=== PATIENT | male | born 1965 | race Caucasian/White ===

== ENCOUNTER 2016-06-23 09:09 | Day surgery (SDC) | payer MEDICARE, OTHER ==
[~2016-06-23 09:09] MED LIST: LACTATED RINGERS 1,000 ML IV.SOLN IV ONE; LIDOCAINE HCL/PF 2% 100 MG/5 ML VIAL IJ ONE; PROPOFOL 200 MG/20 ML VIAL IV ONE; SALINE FLUSH 10 ML DISP.SYRIN IVF ONE
[2016-06-23 13:18] VITALS: BP 110/74
--- NOTE | 2016-06-23 18:49 | Operative Note ---
SURGEON: Asif Louis MD ANESTHESIA: MAC anesthesia. ESTIMATED BLOOD LOSS: None. FINDINGS: A 1 cm sessile polyp in the cecum. PREOPERATIVE DIAGNOSES: History of colon polyps. POSTOPERATIVE DIAGNOSIS: Cecal polyp. PROCEDURE PERFORMED: Colonoscopy with snare polypectomy. DESCRIPTION OF PROCEDURE: The patient was brought to the endoscopy suite and placed in the left lateral decubitus position. A rectal exam was performed which was normal. The colonoscope was inserted and passed easily to the cecum. The appendiceal orifice and ileocecal valve were identified. The prep was adequate. There was a residual 1 cm sessile polyp in the cecum which was completely removed with a snare. The base was clean with no bleeding. The colonoscope was then slowly retracted being careful to inspect all nielsen. No other lesions were seen. The colonoscope was removed. The patient tolerated the procedure well. RECOMMENDATIONS: I recommend a repeat colonoscopy in 3 years pending pathology. ELENITA
== END 2016-06-23 13:30 | disposition home or self-care (01) ==
LOC: OPSURG 09:09
PROVIDERS: ATTEND Colon & Rectal Surgery
DX: D12.0 Benign neoplasm of cecum (principal)
CPT/HCPCS: 45385; 88305; J2001; J2704; J7120; S1016

== ENCOUNTER 2016-07-19 09:44 | Outpatient (CLI) | payer MEDICARE, MEDICAID | END 2016-07-19 09:45 | LOC: LAB 09:44 | PROVIDERS: ATTEND Family Medicine | DX: E89.0 Postprocedural hypothyroidism (principal) | CPT/HCPCS: 36415; 84443 ==

== ENCOUNTER 2017-01-20 09:23 | Outpatient (CLI) | payer OTHER ==
--- NOTE | 2017-01-20 14:44 | Diagnostic Imaging Report ---
JOELLEN ESPINOZA [facility] [address] [facility] [address] [address] Report Submission Date: Jan 20, 2017 11:40:28 AM CDT Patient Study Name: RAMIRO CAMARILLO Date: Jan 20, 2017 9:47:25 AM CDT Modality Type: CR Gender: M Description: CHEST : 61 Institution: [facility] Physician: JOELLEN ESPINOZA Chest -two views CLINICAL HISTORY: Productive cough. Occasional chest pain. FINDINGS: Examination of the chest in PA and lateral views demonstrates the lungs to be clear. Cardiac silhouette is prominent. The bony thorax is intact. IMPRESSION: Left ventricular prominence. No active disease. Electronically signed on Jan 20, 2017 11:40:28 AM CDT by: Juan Pablo KWONG
== END 2017-01-20 09:33 ==
LOC: RAD 09:23
PROVIDERS: ATTEND Family Medicine
DX: E89.0 Postprocedural hypothyroidism (principal); F39 Unspecified mood [affective] disorder; Z51.81 Encounter for therapeutic drug level monitoring; Z79.899 Other long term (current) drug therapy; F17.200 Nicotine dependence, unspecified, uncomplicated; R05 Cough
CPT/HCPCS: 36415; 71020; 80061; 80178; 84443

== ENCOUNTER 2017-02-23 07:32 | Day surgery (SDC) | payer OTHER ==
[2017-02-23] MEDS ORDERED: PROPOFOL 500 MG/50 ML VIAL IV ONE (08:00)
[2017-02-23] MEDS ORDERED: LACTATED RINGERS 1,000 ML IV.SOLN IV ONE (08:00)
[2017-02-23] MEDS ORDERED: SALINE FLUSH 10 ML DISP.SYRIN IVF ONE (08:00)
--- NOTE | 2017-02-23 13:36 | Operative Note ---
SURGEON: Asif Louis MD ANESTHESIA: MAC anesthesia. PREOPERATIVE DIAGNOSIS: Reflux. POSTOPERATIVE DIAGNOSIS: 1. Reflux. 2. Normal esophagogastroduodenoscopy (EGD). PROCEDURE PERFORMED: Esophagogastroduodenoscopy (EGD). ESTIMATED BLOOD LOSS: None. COMPLICATIONS: None. FINDINGS: Normal exam. INDICATIONS FOR PROCEDURE: This is a 52-year-old man with reflux that has not responded to medical management. DESCRIPTION OF PROCEDURE: Patient was brought to the endoscopy suite and placed in the left lateral decubitus position. Anesthesia was administered by the boot and saddle repair person. The endoscope was inserted and passed easily to the second portion of the duodenum. There was no evidence of any mass or lesions. The duodenum was normal. There was very mild distal gastritis in the antrum. There were no masses. He had a very small hiatal hernia. The GE junction was normal. It was at 38 cm from the incisors. The esophagus appeared normal. There was no evidence of esophagitis. The endoscope was removed. The patient tolerated the procedure well. DISPOSITION: I recommended he continue his current medications. cc: Dr. Ziggy KWONG
== END 2017-02-23 07:33 ==
LOC: OPSURG 07:32
PROVIDERS: ATTEND Colon & Rectal Surgery
DX: K21.0 Gastro-esophageal reflux disease with esophagitis (principal)
CPT/HCPCS: J2704; J7120; 43235; S1016

== ENCOUNTER 2017-03-10 10:28 | Outpatient (CLI) | payer OTHER | END 2017-03-10 10:30 | LOC: LAB 10:28 | PROVIDERS: ATTEND Family Medicine | DX: E89.0 Postprocedural hypothyroidism (principal) | CPT/HCPCS: 36415; 84443 ==

== ENCOUNTER 2017-04-07 16:28 | Outpatient (CLI) | payer OTHER | END 2017-04-07 16:38 | LOC: LAB 16:28 | PROVIDERS: ATTEND Family Medicine | DX: E89.0 Postprocedural hypothyroidism (principal) | CPT/HCPCS: 36415; 84443 ==

== ENCOUNTER 2017-05-17 15:19 | Outpatient (CLI) | payer OTHER ==
--- NOTE | 2017-05-18 13:23 | OP Clinic Progress Note ---
REASON FOR VISIT: This 52-year-old man has had a hearing loss in the right ear and intermittently feels that there is a foreign body in it and it aches periodically and has reduced hearing. He does in fact have an extremely rock hard glued in chunk of infected cerumen. Using the microscope, I micro-debrided this in the office. Although it ached somewhat, as it was so severely wedged in, with placement of antibiotic ointment afterwards, all the discomfort had resolved. The left ear was clear and clean in the canal. Both eardrums are intact. Both eardrums are somewhat retracted in the umbo of the malleus. The patient does get imbalanced periodically. I have considered doing a small myringotomy in both ears but not today. I would not tend to do this concomitantly with the rock hard debris that was wedged in his right ear. He has worked around a lot of cement and it almost looks as if some was still leftover but that would be unlikely. Overall, he is quite improved. Another issue is the patient is just beginning to have sleep apnea and is just beginning the use of a CPAP but he has not quite started yet. The patient has a severely obstructed, nearly 100%, right nostril and there is a moderate amount of obstruction in the left nostril. One night he tried the CPAP in the hospital and he did fairly well with a full-face mask. If he continues to do well, I would simply leave him alone with the CPAP. If he has some problems with either pressure or usage, he ought to be considered for nasal surgery to try to open up both passages, particularly the right side that is essentially 100% obstructed. PLAN: For the reasons of his imbalance where he feels as if he just might start to campos or fall to one side and the issues regarding marked nasal obstruction with sleep apnea, I will simply re-evaluate him in about 4 months. cc: Dr. Ziggy KWONG
== END 2017-05-17 15:20 ==
LOC: ENT 15:19
PROVIDERS: ATTEND Otolaryngology
DX: J34.89 Other specified disorders of nose and nasal sinuses (principal); G47.30 Sleep apnea, unspecified; H91.91 Unspecified hearing loss, right ear; H61.21 Impacted cerumen, right ear
CPT/HCPCS: 69210; G0463

== ENCOUNTER 2017-06-03 10:13 | Emergency (ER) | payer OTHER ==
--- NOTE | 2017-06-03 10:53 | ED Physician Documentation ---
General Adult - HISTORIAN Historian: patient - HPI Stated Complaint: Wound Check Chief Complaint: General Adult Onset: other (had circumcision done yesterday) Timing: still present - ROS CONST: no problems. denies: fever, chills - PAST HX Past History: A-Fib (converted, bradycardia) Other History: none Allergies/Adverse Reactions: Allergies Allergy/AdvReac Type Severity Reaction Status Date / Time No Known Allergies Allergy Verified 06/03/17 10:38 - SOCIAL HX Smoking History: less than 1 pack/day (1/3 ppd) Alcohol Use: none Drug Use: none - FAMILY HX Family History: No - VITAL SIGNS Vital Signs: Vital Signs Temp Pulse Resp BP Pulse Ox 98.1 F 52 L 18 149/88 98 06/03/17 10:15 06/03/17 10:15 06/03/17 10:15 06/03/17 10:15 06/03/17 10:15 - REVIEWED ASSESSMENTS Nursing Assessment Reviewed: Yes Vitals Reviewed: Yes General Adult Physical Exam - PHYSICAL EXAM GENERAL APPEARANCE: mild distress NECK: normal inspection RESPIRATORY: no resp distress, chest non-tender, breath sounds normal. No: wheezes, rales, rhonchi CVS: reg rate & rhythm, heart sounds normal, equal pulses, no murmur, no gallop ABDOMEN: soft, no organomegaly, normal bowel sounds, no abdominal bruit, no distension SKIN: other (patient does have serial singleness slightly bloodied fluid draining from the circumcision incision site on the in fear aspect of the penis. Surgical incision looks clean and dry at this time. Do some mild ecchymosis and swelling to the shaft of the penis.) NEURO: oriented X3, CN's nml as tested, sensation nml, mood/affect nml, depressed mood/affect Discharge Clincal Impression: Encounter for post surgical wound check Referrals: Ziggy Howard MD [Primary Care Provider] - 2 Days Additional Instructions: Continue to monitor. Continue with JOSUE and nonadherent wound dressing as discussed. Watch for any infection. Return to the ED if needed. Condition: Stable Disposition: 01 HOME, SELF-CARE Decision to Admit: NO Date of Decison to Admit: 06/03/17 Decision Time: 11:02
[2017-06-03 11:11] VITALS: BP 138/78
== END 2017-06-03 11:10 | disposition home or self-care (01) ==
LOC: ED 10:13
DX: Z48.01 Encounter for change or removal of surgical wound dressing (principal)
CPT/HCPCS: 99283

== ENCOUNTER 2017-09-13 13:15 | Outpatient (CLI) | payer OTHER ==
--- NOTE | 2017-09-15 10:50 | OP Clinic Progress Note ---
REASON FOR VISIT: This 52-year-old man was seen with right ear itchiness and discomfort and reduced hearing. He has a large chunk of otitis externa that is hard and crusted in the ear canal. Under the microscope, I debrided this wide area of hard crusted, scabby debris from the ear. Clinically, he has fairly marked improved hearing and less general discomfort. The eardrum does not have any significant pathology. He has begun using a BiPAP. He uses it but he estimates that he might use it 4- 1/2 to 5 hours a night at best. Again, he has a severe nasal deformity with 100% nasal obstruction on the right side. He also has moderate oropharyngeal restriction with hypertrophic tonsillar tissues with exudates. I did discuss the importance of being able to use the BiPAP longer. At least he is using it, so he has at least a moderate amount of success using the BiPAP. Although nasal surgery and oropharyngeal surgery would probably significantly improve him. He does not follow the train of thought in regard to this discussion. PLAN: I will see him back in April and reclean his ears and probably re-visit issues regarding the quality of BiPAP usage. It is great that he got on it and it is at least a very healthy step in the right direction. cc: Dr. Ziggy KWONG
== END 2017-09-13 13:16 ==
LOC: ENT 13:15
PROVIDERS: ATTEND Otolaryngology
DX: H60.91 Unspecified otitis externa, right ear (principal)
CPT/HCPCS: 69210; G0463

== ENCOUNTER 2017-11-21 10:31 | Outpatient (CLI) | payer OTHER ==
[2017-11-21 10:50] LABS: BASOPHILS % 0.5 (0.0-1.5); EOSINOPHILS % 4.7 % (0.0-6.8); MEAN CORPUSCULAR HEMOGLOBIN 29.3 pg (28.0-34.0); MEAN CORPUSCULAR VOLUME 91.8 fl (80.0-100.0); MONOCYTES % 4.8 % (0.0-11.0); NEUTROPHILS # 6.3 # k/uL (1.4-7.7)
[2017-11-21 11:09] LABS: eGFR (African) > 60; eGFR (Non-African) > 60
== END 2017-11-21 10:32 ==
LOC: LAB 10:31
PROVIDERS: ATTEND Family Medicine
DX: I10 Essential (primary) hypertension (principal); Z51.81 Encounter for therapeutic drug level monitoring; Z79.899 Other long term (current) drug therapy; E89.0 Postprocedural hypothyroidism
CPT/HCPCS: 36415; 80053; 80178; 84443; 85025

== ENCOUNTER 2018-02-21 10:27 | Outpatient (CLI) | payer OTHER | END 2018-02-21 10:30 | LOC: LAB 10:27 | PROVIDERS: ATTEND Family Medicine | DX: E89.0 Postprocedural hypothyroidism (principal) | CPT/HCPCS: 36415; 84443 ==

== ENCOUNTER 2018-05-09 13:41 | Outpatient (CLI) | payer OTHER ==
--- NOTE | 2018-05-10 14:49 | OP Clinic Progress Note ---
REASON FOR VISIT: This 53-year-old man has had facial scabs and crusts and severe inflammatory reactions diffusely around his face. He is on a BiPAP with a fairly significant amount of pressure by history. He has a severe right nasal septal deviation with scabbing and crusting. There are deep groves and sulci on the left side of his nose secondary to the septal deviation. The patient feels, and as far as my observation, his facial skin generally has visibly improved. He had 2 ulcers below the lower lip. These are also smaller. They are hard crusted on top today. I peeled off a hard crusty area so that the Clindamycin can soak down in there better. PLAN: I have asked him to keep using the hygiene that he has had. He is currently not using the BiPAP and feels that he is not snoring heavily and to some degree, he may not have clinical sleep apnea currently. At least for the time being, he is heading in the direction of visible improvement. I will see him back in about 3 weeks. Continue on the same regimen. He is using Clindamycin and he is using a special soap on his face to help keep it clean, and he is not currently using the BiPAP and symptomatically, he is not having marked apnea but it is difficult to confirm this history. cc: Dr. Ziggy KWONG
== END 2018-05-09 13:42 ==
LOC: ENT 13:41
PROVIDERS: ATTEND Otolaryngology
DX: L98.9 Disorder of the skin and subcutaneous tissue, unspecified (principal); J34.2 Deviated nasal septum; L98.498 Non-pressure chronic ulcer of skin of other sites with other specified severity
CPT/HCPCS: 99212

== ENCOUNTER 2018-05-23 10:13 | Outpatient (CLI) | payer OTHER ==
[2018-05-23 10:51] LABS: MEAN CORPUSCULAR HEMOGLOBIN 30.2 pg (28.0-34.0); MONOCYTES % 5.8 % (0.0-11.0)
[2018-05-23 10:52] LABS: BASOPHILS % 0.5 (0.0-1.5); NEUTROPHILS # 6.6 # k/uL (1.4-7.7)
[2018-05-23 17:26] LABS: eGFR (Non-African) > 60
== END 2018-05-23 10:14 ==
LOC: LAB 10:13
PROVIDERS: ATTEND Family Medicine
DX: I10 Essential (primary) hypertension (principal); E89.0 Postprocedural hypothyroidism; Z79.899 Other long term (current) drug therapy
CPT/HCPCS: 36415; 80053; 80178; 84443; 85025

== ENCOUNTER 2018-06-13 14:52 | Outpatient (CLI) | payer OTHER ==
--- NOTE | 2018-06-15 09:48 | OP Clinic Progress Note ---
REASON FOR VISIT: Kosta is seen in follow up of his facial cellulitis and a sore in the dome of his left nostril, difficulties using his BiPAP with a mask, and right ear otalgia. He has been on Clindamycin facial washes and he has also shaved his mustache. Under the regimen as noted before, particularly using the clindamycin face wash and lotion, he has significantly improved. He feels that his facial ulcers and general sores have improved at least 33%. He states regarding his right ear otalgia, he says, "It has all straightened up and it is all gone now." His facial skin, at least today, looks, I would agree with him, 30% to 40% improved. There is much less swelling. I really do not see any erythema today. What is described as a blister in the dome of his nostril on that left side, again, is perhaps 70% improved. Although he could benefit I think with nasal surgery to try to improve his nasal airway, he might be able to use the BiPAP better. Nevertheless, trying to get rid of his clinical infection with facial cellulitis is critically important beforehand. Patient has some relatives who have had nasal surgery and so he is aware of risks, problems, and some of the complications and some discomfort and he is mulling over his options. PLAN: As the Clindamycin seems to be fairly significantly improving him, I have given him additionally 2 weeks of Clindamycin 300 mg twice a day. He will continue using the Clindamycin lotion. I would tend to not operate on his nose until we get hopefully even more cleaning up of his facial and nasal cellulitis. cc: Dr. Ziggy KWONG
== END 2018-06-13 14:53 ==
LOC: ENT 14:52
PROVIDERS: ATTEND Otolaryngology
DX: L03.211 Cellulitis of face (principal); J34.0 Abscess, furuncle and carbuncle of nose
CPT/HCPCS: G0463

== ENCOUNTER 2018-08-20 10:45 | Outpatient (CLI) | payer OTHER ==
--- NOTE | 2018-08-20 12:59 | Diagnostic Imaging Report ---
JOELLEN ESPINOZA [facility] [address] [facility] [address] [address] Report Submission Date: Aug 20, 2018 11:34:51 AM CDT Patient Study Name: RAMIRO CAMARILLO Date: Aug 20, 2018 11:00:36 AM CDT Modality Type: DX Gender: M Description: CHEST 2VIEW : 61 Institution: [facility] Physician: JOELLEN ESPINOZA EXAMINATION: CHEST 2VIEW HISTORY: smoker (Hx) COMPARISON: None FINDINGS: There is mild prominence of the interstitium diffusely. There is a calcified granuloma in the left lower lobe. There is no focal consolidation, pleural effusion, or pneumothorax. The cardiomediastinal silhouette is normal. The visible bony thorax is intact. IMPRESSION: Mild prominence of the interstitium diffusely, which could represent mild pulmonary edema and/or interstitial pneumonia in the appropriate clinical setting. No evidence of large suspicious pulmonary nodule. Electronically signed on Aug 20, 2018 11:34:51 AM CDT by: Irvin KWONG
== END 2018-08-20 10:47 ==
LOC: LAB 10:45
PROVIDERS: ATTEND Family Medicine
DX: R91.8 Other nonspecific abnormal finding of lung field (principal); R04.2 Hemoptysis; F17.200 Nicotine dependence, unspecified, uncomplicated; E03.9 Hypothyroidism, unspecified
CPT/HCPCS: 36415; 71046; 84443

== ENCOUNTER 2018-08-29 10:08 | Outpatient (CLI) | payer OTHER | END 2018-08-29 10:10 | LOC: LAB 10:08 | PROVIDERS: ATTEND Family Medicine | DX: E89.0 Postprocedural hypothyroidism (principal) | CPT/HCPCS: 36415; 84439; 84481 ==

== ENCOUNTER 2018-09-06 09:08 | Outpatient (CLI) | payer OTHER ==
[2018-09-06 09:44] LABS: eGFR (Non-African) > 60
--- NOTE | 2018-09-07 06:16 | Diagnostic Imaging Report ---
JOELLEN ESPINOZA [facility] [address] [facility] [address] [place], [place]. [address] Report Submission Date: Sep 06, 2018 10:24:03 AM CDT Patient Study Name: RAMIRO CAMARILLO Date: Sep 06, 2018 9:53:08 AM CDT Modality Type: CT\SR Gender: M Description: CT CHEST W/ CONTRAST : 61 Institution: [facility] Physician: JOELLEN ESPINOZA EXAMINATION: CT CHEST W/ CONTRAST HISTORY: HEMOPTYSIS, PT STATES CHEST PAIN AND COUGHING UP BLOOD FOR SEVERAL WEEKS, SMOKER- 1 PACK EVERY 2-3 DAYS TECHNIQUE: CT of the chest was performed with contrast according to standard protocol. COMPARISON: None FINDINGS: The aorta and main pulmonary artery are normal in caliber. There is mild emphysema in the lungs. There are scattered calcified pulmonary granulomas. In addition, there are a few indeterminate pulmonary nodules as followed: 6 mm juxtapleural right upper lobe (series 3 image 22), 7 mm juxtapleural right upper lobe (image 23), 5 mm right middle lobe (image 35), and 4 mm lingula (image 49). No pleural effusion is identified. There is no evidence of pneumothorax. The trachea is patent and midline. A small amount of debris is seen in the trachea. The heart size is normal. No lymphadenopathy is seen. The thyroid gland not well demonstrated and may be atrophic. Other than a calcified granuloma in the spleen, the visible portions of the upper abdominal organs are normal. Bone windows demonstrate no suspicious lytic or blastic lesions. The visible osseous structures are intact. IMPRESSION: 1. No evidence of endobronchial lesion to explain the patient's hemoptysis. 2. A few subcentimeter indeterminate pulmonary nodules as described above, largest measuring 7 mm. Given the presence of mild emphysema, a followup CT of the chest without contrast in 3-6 months is recommended. Electronically signed on Sep 06, 2018 10:24:03 AM CDT by: Irvin KWONG
== END 2018-09-06 09:10 ==
LOC: RAD 09:08
PROVIDERS: ATTEND Family Medicine
DX: R91.8 Other nonspecific abnormal finding of lung field (principal); I10 Essential (primary) hypertension; R04.2 Hemoptysis
CPT/HCPCS: 36415; 71260; 80048; Q9967

== ENCOUNTER 2019-02-01 07:55 | Outpatient (CLI) | payer OTHER | END 2019-02-01 07:57 | LOC: LAB 07:55 | PROVIDERS: ATTEND Family Medicine | DX: F39 Unspecified mood [affective] disorder (principal); Z79.899 Other long term (current) drug therapy | CPT/HCPCS: 36415; 80178 ==

== ENCOUNTER 2019-03-12 08:42 | Outpatient (CLI) | payer OTHER ==
--- NOTE | 2019-03-25 15:54 | Diagnostic Imaging Report ---
ROHIT GARCIA [facility] [address] [facility] [address] Report Submission Date: Mar 12, 2019 10:14:16 AM CDT Patient Study Name: RAMIRO CAMARILLO Date: Mar 12, 2019 9:06:06 AM CDT Modality Type: US Gender: M Description: US ABDOMEN LIMITED : 61 Institution: [facility] Physician: ROHIT GARCIA Exam: Limited abdominal ultrasound. History: Left groin pain. Real-time grayscale imaging over the left inguinal region is performed. A questionable area of protrusion in the left groin corresponding to the palpable abnormality is noted which may represent a small inguinal hernia containing only fat. No adjacent loops of bowel are identified. Impression: Possible small inguinal hernia containing only fat. CT may be necessary to further characterize. Electronically signed on Mar 12, 2019 10:14:16 AM CDT by: Artemio KWONG
== END 2019-03-12 09:55 ==
LOC: RAD 08:42
PROVIDERS: ATTEND Nurse Practitioner Family
DX: R10.30 Lower abdominal pain, unspecified (principal)
CPT/HCPCS: 76705

== ENCOUNTER 2019-06-24 11:52 | Outpatient (CLI) | payer OTHER | END 2019-06-24 11:57 | LOC: LABRHC 11:52 | PROVIDERS: ATTEND Family Medicine | DX: Z51.81 Encounter for therapeutic drug level monitoring (principal) | CPT/HCPCS: 80053; 85025 ==